=== PATIENT | male | born 1980 | race Caucasian/White ===

== ENCOUNTER 2022-06-11 08:26 | Outpatient (REF) | payer OTHER, SELFPAY ==
[2022-06-11 08:54] LABS: MANUAL DIFF FLAG NO
[2022-06-11 09:01] LABS: Basophils Percent Auto 0.5 % (0-2); Eosinophils Absolute Auto 0.1 X10*3/uL (0.0-0.4); Eosinophils Percent Auto 0.8 % (0-4); Hematocrit 41.8 % (42.0-52.0); Hemoglobin 14.3 g/dl (14.0-18.0); Imm Gran Abs Auto 0.02 X10*3/uL (0.00-0.03); Imm Gran Pct Auto 0.3 % (0.0-0.4); Lymphocytes Absolute Auto 2.1 X10*3/uL (1.2-4.9); Lymphocytes Percent Auto 32.1 % (20-40); Mean Corpuscular HGB Conc 34.2 g/dl (31.0-36.0); Mean Corpuscular Hemoglobin 29.9 pg (27.0-33.0); Mean Corpuscular Volume 87.3 fL (80.0-98.0); Mean Platelet Volume 9.3 fL (9.4-12.4); Monocytes Absolute Auto 0.7 X10*3/uL (0.1-1.2); Monocytes Percent Auto 10.8 % (2-11); Neutrophils Absolute Auto 3.6 x10*3/uL (2.0-8.3); Neutrophils Percent Auto 55.5 % (45-73); Platelet Count 295 X10*3/uL (160-400); Red Blood Count 4.79 X10*6/uL (4.60-5.80); Red Cell Distribution Width 12.1 % (11.0-16.0); White Blood Count 6.5 X10*3/uL (4.8-10.8)
[2022-06-11 10:00] LABS: Alanine Aminotransferase 57 U/L (0-40); Albumin Level 4.5 g/dL (3.5-5.0); Alkaline Phosphatase 95 U/L (39-117); Anion Gap 12 (12-20); Aspartate Amino Transferase 27 U/L (5-37); Bilirubin Total 1.3 mg/dL (0.0-1.0); Blood Urea Nitrogen 18 mg/dL (9-16); Calcium 9.7 mg/dL (8.4-10.2); Carbon Dioxide 30 mmol/L (22-29); Chloride 102 mmol/L (96-108); Cholesterol 167 mg/dL; Estimated Glomerular Filt Rate > 60; Glucose Fasting 102 mg/dL (60-99); HDL Cholesterol 28 mg/dL; LDL Cholesterol Calculated 123 mg/dl; Potassium 4.7 mmol/L (3.3-5.1); Sodium 139 mmol/L (135-145); TSH reflex Free T4 0.87 uIU/mL (0.32-4.0); Total Protein 7.4 g/dL (6.5-8.0); Triglycerides 80 mg/dL
[2022-06-11 10:16] LABS: Folate 12.3 ng/mL (> or = 4.0); Vitamin B12 617 pg/mL (200-900)
== END 2022-06-11 08:27 | disposition home or self-care (01) ==
LOC: HO.LAB 08:26
PROVIDERS: PCP Nurse Practitioner Family; Visit Provider Nurse Practitioner Family
DX: Z76.89 Persons encountering health services in other specified circumstances (principal)
CPT/HCPCS: 36415; 80053; 80061; 82306; 82607; 82746; 84443; 85025

== ENCOUNTER 2022-07-30 09:48 | Outpatient (REF) | payer OTHER, SELFPAY ==
[2022-07-30 11:21] LABS: Estimated Average Glucose 97 mg/dL
[2022-07-30 12:02] LABS: Alanine Aminotransferase 25 U/L (0-40); Albumin Level 4.4 g/dL (3.5-5.0); Alkaline Phosphatase 86 U/L (39-117); Aspartate Amino Transferase 21 U/L (5-37); Bilirubin Direct 0.3 mg/dL (0.0-0.5); Bilirubin Total 1.1 mg/dL (0.0-1.0); Total Protein 7.3 g/dL (6.5-8.0)
== END 2022-07-30 09:49 | disposition home or self-care (01) ==
LOC: HO.LAB 09:48
PROVIDERS: PCP Nurse Practitioner Family; Visit Provider Nurse Practitioner Family
DX: R73.01 Impaired fasting glucose (principal); R79.89 Other specified abnormal findings of blood chemistry
CPT/HCPCS: 36415; 80076; 82306; 83036

== ENCOUNTER 2022-11-05 08:52 | Outpatient (REF) | payer OTHER, SELFPAY ==
[2022-11-05 10:13] LABS: Vitamin D 25-OH Total 33.1 ng/mL (>30)
== END 2022-11-05 08:53 | disposition home or self-care (01) ==
LOC: HO.LAB 08:52
PROVIDERS: PCP Nurse Practitioner Family; Visit Provider Nurse Practitioner Family
DX: E55.9 Vitamin D deficiency, unspecified (principal)
CPT/HCPCS: 36415; 82306

== ENCOUNTER 2023-04-30 09:27 | Emergency (ER) | payer OTHER, SELFPAY ==
[2023-04-30 09:28] VITALS: BP 134/66; PULSE 103; RESP 18; TEMP 36.5; O2SAT 98; BMI 24.5
--- NOTE | 2023-04-30 09:53 | ED_ITS ---
HPI - URI/Sore Throat General Chief Complaint: Upper Respiratory Symptoms Stated Complaint: sore throat Time Seen by Provider: 04/30/23 09:33 Source: patient and RN notes reviewed Mode of arrival: ambulatory Limitations: no limitations History of Present Illness HPI Narrative: This is a 42-year-old male, with a past medical history of GERD, presenting to the emergency department for evaluation of sore throat, headaches, body aches x3 days. Patient states that 3 days ago he noticed a sore throat. He states that over the last couple of days he has had headaches and body aches. He admits to having some subjective fevers. He has been taking Tylenol and Motrin, and TheraFlu for his symptoms which has provided him without any relief. Patient denies any congestion, cough, chest pain, shortness of breath. Denies abdominal pain, nausea, vomiting or diarrhea. He states his mother was sick with similar symptoms however her symptoms have since resolved. No other sick contacts. No other complaints or concerns at this time. MD elicited complaint: fever (Subjective) and sore throat Onset (ago): day(s) Consistency: constant Severity: moderate Able to tolerate fluids by mouth: Yes Exacerbating factors: swallowing Relieving factors: NSAID and OTC cold medicine Context: sick contacts Associated symptoms: myalgias and headache Treatments prior to arrival: none Related Data Previous Rx's Medication Instructions Recorded cholecalciferol (vitamin D3) 25 25 mcg PO DAILY #90 tabs 02/07/23 mcg (1,000 unit) tablet Allergies Allergy/AdvReac Type Severity Reaction Status Date / Time No Known Allergies Allergy Verified 05/25/22 11:16 [No Known Allergies*] Review of Systems Review of Systems: Yes all other systems are reviewed and are negative Constitutional: Constitutional: Reports as per [facility] Past Medical History Attestation statement: The following information was validated with the patient. Surgical History No pertinent past surgical history Family History Family History Mother No problems noted. Father Lung cancer Social History Social History Housing: Apartment Patient Tobacco Use Status: Never used Tobacco Advance Directives: No Advance Directives Information Provided: No service: No Current occupational status: employed Cognitive needs: No Hearing needs: No Vision needs: No Physical Exam Vital Signs: Vital Signs: Last Vital Signs Temp 97.7 F 04/30/23 09:28 Pulse 103 H 04/30/23 09:28 Resp 18 04/30/23 09:28 BP 134/66 04/30/23 09:28 Pulse Ox 98 04/30/23 09:28 O2 Del Method Room Air 04/30/23 09:28 BMI result Body Mass Index 24.5 Const: General: cooperative, comfortable and no acute distress Orientation/consciousness: patient oriented x3 Limitations: no limitations HEENT: Other: Oral pharynx is mildly erythematous, no tonsillar hypertrophy or exudates. Uvula is midline. Tolerating oral secretions well without difficulty. No trismus, drooling, or dysphonia. Head: Yes normal to inspection, Yes normocephalic and Yes atraumatic Ears: hearing grossly normal bilaterally and TM's normal bilaterally General nose exam: Normal external nose present Face and sinus: Yes normal facial exam Throat: Yes posterior oropharynx normal Eyes: General: appearance normal, both eyes and all related structures Eyelids: Yes eyelids normal Conjunctivae: conjunctivae normal Sclerae: sclerae normal Pupils: Equal, round and reactive pupils present EOM: EOMs intact bilaterally Neck: Neck: Yes normal visual inspection, Yes full ROM and Yes no lymphadenopathy Lymphatic: no lymphadenopathy noted Chest: Chest palpation & inspection: normal inspection of the chest Resp: Effort & Inspection: normal respiratory effort and able to speak in complete sentences Auscultation: clear to auscultation bilaterally, no aircraft fueler ckles, no rales, no rhonchi and no wheezes Cardio: Rate: regular rate Rhythm: regular rhythm Heart sounds: S1 normal heart sound present and S2 normal heart sound present GI: Inspection: Yes normal to inspection Skin: General skin exam: no rashes or lesions noted Trauma: no lacerations or abrasions Wounds: no wounds Neuro: General: patient oriented x3 and moves all extremities Cranial nerves: Yes Equal, round and reactive pupils present Extrem: General: Yes normal to inspection Right upper extremity: normal to inspection Left upper extremity: normal to inspection Right lower extremity: normal to inspection Left lower extremity: normal to inspection Course Reevaluation(s) Reevaluation #1: COVID, flu, strep swab obtained and are negative. Discussed findings with patient. Symptoms consistent with viral pharyngitis. Given conservative treatment measures for symptomatic relief. Patient understands and agrees with plan. Patient given return precautions. Patient stable for discharge. Time: 10:31 Medications Administered Discontinued Medications Generic Name Dose Route Start Last Admin Trade Name Brooke PRN Reason Stop Dose Admin Acetaminophen 975 mg 04/30/23 09:55 04/30/23 10:10 Acetaminophen 325 Mg Tablet PO 04/30/23 09:56 975 mg ONCE ONE Administration Medical Decision Making Medical Decision Making [facility] Narrative: 42-year-old male, with a history of GERD, presenting to the emergency department for evaluation of sore throat, headaches, body aches x3 days. On arrival, pulse mildly tachycardic at 103 beats per minute, otherwise all other vital signs within normal limits. Patient is nontoxic appearing, speaking in full sentences, and is handling oral secretions well. On examination, oropharynx is mildly erythematous with no tonsillar hypertrophy or exudates. Lungs are clear to auscultation bilaterally. Differential diagnoses include strep pharyngitis, viral pharyngitis, URI, COVID, flu, peritonsillar abscess. Plan: COVID, flu, strep, Tylenol 975 mg p.o. Differential Diagnosis Differential Diagnoses: The differential diagnosis associated with the presentation includes See above Lab Data Labs: Lab Results 04/30/23 04/30/23 Range/Units 09:38 09:44 COVID-19 ([facility]) Negative (Negative) COVID-19 Clin Com See Note Influenza Type A (NEIL) Negative (Negative) Influenza Type B (NEIL) Negative (Negative) Influenza A & B Note See Note S. pyogenes GrpA NEIL Negative (Negative) Discharge Plan Discharge Clinical Impression: Pharyngitis Patient Disposition: Home, Self-Care Instructions: Pharyngitis (ED) Additional Instructions: You presented to the emergency department due to sore throat, headaches, and body aches. You tested negative for COVID, flu, and strep throat today. Your symptoms are likely due to a virus. You do not need treatment for this, this will get better on its own. Drink plenty of fluids and get plenty of rest. Alternate between ibuprofen and Tylenol as needed for pain. Salt water gargles, hot tea with honey, hot soups can help with your symptoms. If any new or worsening symptoms occur including but not limited to difficulty swallowing, chest pain, shortness of breath, please return for re-evaluation. Prescriptions: No Action cholecalciferol (vitamin D3) 25 mcg (1,000 unit) tablet 25 mcg PO DAILY Qty: 90 0RF Stand Alone Forms: Work/School Release
[2023-04-30 09:58] LABS: IDNOW Serial# 08D9AD1C; Strep A Nucleic Acid Negative (Negative)
[2023-04-30] MEDS: Acetaminophen 325 MG TABLET 975 MG PO (10:10)
--- NOTE | 2023-04-30 10:12 | PC.NURSE ---
Pt presents for evaluation of body aches, upper respiratory symptoms, headache, and sore throat that has been ongoing since Tuesday this week. No known sick contacts and no fever reported. No other complaints of pain or discomfort. Has an occasional productive cough and ? low-grade fever.
[2023-04-30 10:15] LABS: COVID-19 Test Negative (Negative); IDNOW Serial# 9DB6401D; IDNOW Serial# BCCEAD1C; Influenza A Negative (Negative); Influenza B2 Negative (Negative)
== END 2023-04-30 11:16 | disposition home or self-care (01) ==
PROVIDERS: Emergency Provider Student in an Organized Health Care Education/Training Program; PCP Nurse Practitioner Family
DX: J02.9 Acute pharyngitis, unspecified (principal); R51.9 Headache, unspecified; Z11.52 Encounter for screening for COVID-19
CPT/HCPCS: 87502; 87635; 87651; 99283

== ENCOUNTER 2023-06-17 10:53 | Outpatient (AMB) | payer OTHER, SELFPAY ==
[2023-06-17 11:04] VITALS: BP 112/70; PULSE 76; O2SAT 97; BMI 25.0
--- NOTE | 2023-06-17 11:04 | MHC.PC.OV ---
Vital Signs 06/17/23 11:04 Height 5 ft 9 in Weight 169 lb 0.2 oz BMI 25.0 BP 112/70 Blood Pressure Location Lt brachial Position Sitting Pulse 76 Pulse Source Pulse Oximeter Temp Source Skin Pulse Oximetry (%) 97 Oxygen Delivery Method Room Air Intake Visit Reasons: pe Intake Note: Patient is here today for a physical. 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 Medical history significant for depression, GERD, low vitamin-D level, elevated fasting glucose. Up-to-date with immunizations. Reports intermittent headaches the worse the end of the day after work, reports improved with [id number] Tylenol or Advil as needed, not daily headache, denies sensitivity to light. No shortness of breath or chest pain. No other concerns. [facility] Medical History (Updated 06/17/23 @ 13:09 by KAM Najera) Elevated LFTs Encounter to establish care Surgical History No pertinent past surgical history Family History Mother No problems noted. Father Lung cancer Social History Housing: Apartment Patient Tobacco Use Status: Never used Tobacco service: No Current occupational status: employed Cognitive needs: No Hearing needs: No Vision needs: No Questionnaire Thrive Questionnaire Date Thrive assessed: 06/17/23 I am a: Patient What is your living situation today?: I have a steady place to live Within the past 12 months, did the food you bought not last and you didn't have the money to get more?: Never true Within the past 12 months, did you worry whether your food would run out before you got money to buy more?: Never true Do you have trouble paying for medicines?: No Do you have trouble getting transportation to medical appointments?: No Do you have trouble paying your heating and electricity bill?: No Do you have trouble taking care of your child, family member or friend?: No Do you have trouble with day-to-day activities such as bathing, preparing meals, shopping, managing finances, etc.?: No Are you currently unemployed and looking for a job?: No Are you interested in more education?: No Currently or been in a relationship where the following occur: no concerns reported AUDIT C Alcohol Use Questionnaire (AUDIT-C) 1. How often do you have a drink containing alcohol?: Monthly or less 2. How many drinks containing alcohol do you have on a typical day when you are drinking?: 1 or 2 3. How often do you have six or more drinks on one occasion?: Never Total Score: 1 Score Reviewed/Action Taken: No ANNE MARIE-7 AMB Questionnaire ANNE MARIE-7 Date ANNE MARIE - 7 assessed: 06/17/23 (pt states little to no anxiety) Feeling nervous, anxious, or on edge: 0 = Not at all Not being able to stop or control worryin = Not at all Worrying too much about different things: 0 = Not at all Trouble relaxin = Not at all Being so restless that it is hard to sit still: 0 = Not at all Becoming easily annoyed or irritable: 0 = Not at all Feeling afraid as if something awful might happen: 0 = Not at all Total ANNE MARIE-7 score (0-4 normal; 5-9 mild; 10-14 moderate; 15-21 severe): 0 Source: Developed by Drs. Jimmie Suarez, Kayleen Gibson, Charles Marcial and colleagues, with an educational tito from [employer]. ANNE MARIE-7 Assessment Billing ANNE MARIE-7 Assessment Tool: ANNE MARIE-7 Assessment [id number] Review of Systems Const Denies body aches, Denies chills, Denies fever(s) and Reports headache(s) (Intermittent) Eyes Denies change in vision ENT Denies dizziness, Denies otalgia, Reports headache(s) (Intermittent), Denies nasal discharge, Denies sinus pain and Denies sore throat Card Denies chest pain, Denies edema, Denies lightheadedness and Denies dyspnea Resp Denies cough, Denies dyspnea and Denies wheezing GI Denies abdominal pain, Denies constipation, Denies diarrhea, Denies nausea and Denies vomiting Denies dysuria Musc Denies myalgias Skin/Breast Denies rash Neuro Denies dizziness and Reports headache(s) (Intermittent) Aller/Immun Denies wheezing Physical exam (Primary Care) Vital Signs: Last Vital Signs Pulse 76 06/17/23 11:04 BP 112/70 06/17/23 11:04 Pulse Ox 97 06/17/23 11:04 Oxygen Delivery Method Room Air 06/17/23 11:04 BMI result Body Mass Index 25.0 Tobacco/Smoking Status: Tobacco use Status Tobacco use date assessed 06/17/23 06/17/23 11:24 Patient Tobacco Use Status Never used Tobacco 06/17/23 11:05 Thrive Assessment: Date of Thrive Assessment Date Thrive assessed 06/17/23 06/17/23 11:24 Currently or been in a relationship where the following occur: no concerns reported Const General: cooperative and no acute distress Orientation/consciousness: patient oriented x3 HENMT Head: Yes normocephalic and Yes atraumatic Ears: TM's normal bilaterally Face and sinus: Yes sinuses nontender Mouth: oropharynx normal and moist mucous membranes Throat: Yes posterior oropharynx normal Eyes General: appearance normal, both eyes and all related structures Pupils: Equal, round and reactive pupils present EOM: EOMs intact bilaterally Neck Neck: Yes normal visual inspection, Yes full ROM and Yes no lymphadenopathy Thyroid: Thyroid normal Resp Effort & Inspection: normal respiratory effort and able to speak in complete sentences Auscultation: clear to auscultation bilaterally, no crackles, no rales, no rhonchi and no wheezes Cardio Rate: regular rate Rhythm: regular rhythm Heart sounds: S1 normal heart sound present, S2 normal heart sound present and no murmurs GI Palpation (GI): Soft to palpation, not firm, nontender, no guarding, not rigid and no hepatosplenomegaly Auscultation: normal bowel sounds General: No CVA tenderness Back/Spine/Pelvis Back: No CVA tenderness Skin General skin exam: no rashes or lesions noted Neuro General: patient oriented x3 Cranial nerves: Yes Equal, round and reactive pupils present Gait exam (Neuro): Normal gait present Extrem General: Yes full ROM and No edema Assessment and Plan Assessment & Plan (1) GERD (gastroesophageal reflux disease): Code(s): K21.9 - Gastro-esophageal reflux disease without esophagitis Plan: Avoid GERD trigger foods Do not lay down 2-3 hours after evening meal (2) Depression: Code(s): F32.A - Depression, unspecified Qualifiers: Depression Type: other depression Qualified Code(s): F32.89 - Other specified depressive episodes Plan: Stable Not on pharmacological intervention (3) Adult general medical exam: Code(s): Z00.00 - Encounter for general adult medical examination without abnormal findings Plan: Repeat in 1 year (4) Elevated fasting glucose: Code(s): R73.01 - Impaired fasting glucose Plan: A1c ordered (5) Headache: Code(s): R51.9 - Headache, unspecified Plan: Stable with [id number] Tylenol or Advil Signs and symptoms reviewed when to notify provider or go to the emergency department (6) Low vitamin D level: Code(s): R79.89 - Other specified abnormal findings of blood chemistry Plan: Will recheck vitamin-D level Orders: Orders Vitamin D 25-OH Total Today R79.89 - Other specified abnormal findings of blood chemistry Lipid Panel Today Z00.00 - Encounter for general adult medical examination without abnormal findings Comprehensive [place]. Panel Fast Today Z00.00 - Encounter for general adult medical examination without abnormal findings TSH reflex Free T4 Today Z00.00 - Encounter for general adult medical examination without abnormal findings Complete Blood Count Auto Diff Today Z00.00 - Encounter for general adult medical examination without abnormal findings Hemoglobin A1c Today R73.01 - Impaired fasting glucose Coding Level of Care Code Est Pt Prev Care 40-64y(42080) Diagnoses GERD (gastroesophageal reflux disease) K21.9 Other depression F32.89 Depression Type: other depression Adult general medical exam Z00.00 Elevated fasting glucose R73.01 Headache R51.9 Low vitamin D level R79.89 Additional Codes ANNE MARIE-7 Assessment Billing - ANNE MARIE-7 Assessment Tool: ANNE MARIE-7 Assessment [id number] ([id number])
== END 2023-06-17 11:55 | disposition home or self-care (01) ==
PROVIDERS: PCP Nurse Practitioner Family; Visit Provider Nurse Practitioner Family
DX: Z00.00 Encounter for general adult medical examination without abnormal findings (principal); K21.9 Gastro-esophageal reflux disease without esophagitis; F32.89 Other specified depressive episodes; R73.01 Impaired fasting glucose; R51.9 Headache, unspecified; R79.89 Other specified abnormal findings of blood chemistry
CPT/HCPCS: 99396